=== PATIENT | female | born 1995 | race Caucasian/White ===

== ENCOUNTER 2019-10-05 20:32 | Emergency (ER) | payer MEDICAID, SELFPAY ==
[2019-10-05 20:40] VITALS: BP 174/115; PULSE 120; RESP 22; TEMP 36.3; O2SAT 97; BMI 54.9
--- NOTE | 2019-10-05 20:51 | ECG_ITS ---
Measurements Intervals [place] Rate: 108 P: 58 MD: 149 QRS: 59 QRSD: 106 T: 33 QT: 345 QTc: 463 SINUS TACHYCARDIA ABNORMAL RHYTHM ECG Compared to ECG 11/10/2017 12:53:17 Sinus rhythm no longer present Short MD interval no longer present Electronically Signed On 10-06-2019 0:20:49 [employer] by Mario Alberto Ontiveros M.D. [id number]
--- NOTE | 2019-10-05 20:51 | XR_ITS ---
WS: [id number] ONE VIEW CHEST HISTORY: 23 years old Female with cp AP upright chest comparison 11/10/2017 FINDINGS: No pneumothorax, pleural effusion, consolidation/atelectasis. Cardiomediastinal silhouette and pulmon froylan vascular markings are unremarkable. Osseous structures intact. XR/XR chest 1V portable [id number] IMPRESSION: No acute cardiopulmonary findings, and no significant change from 11/10/2017.
--- NOTE | 2019-10-05 20:52 | ED_ITS ---
Entered by Sandra Aguilar, acting as scribe for HPI - Chest Pain General: Chief Complaint: Chest Pain Stated Complaint: heart palps Time Seen by Provider: 10/05/19 20:42 Source: patient Mode of arrival: ambulatory Limitations: no limitations History of Present Illness: HPI narrative: 23 yo f came to the er for heart palpatations and dizziness. Onset was today. Pt states that she has some sob, palp, and dizziness. Pt states that she has had pe's in the past. MD complaint: chest pain and other (heart palpatations) Pertinent past history: other (pe) Onset (ago): day(s) (today) Timing of current episode: episodic Prior episodes: Yes Onset: during rest Pain radiation: none Severity: mild Quality: heaviness Relieving factors: nothing Exacerbating factors: nothing Associated symptoms: Reports dyspnea and palpitations; Deny abdominal pain, fever(s) or vomiting Treatment prior to arrival: none Risk Factors: Coronary artery disease risk factors: none Thoracic aortic dissection risk factors: none Pulmonary embolism risk factors: history of pulmonary embolism (x2) Related Data: On Oral Contraceptives: No Review of Systems General: Reports: other (negative unless marked ) Const: Denies: fever or chills Eyes: Denies: change in vision Card: Reports: palpitations and edema Resp: Reports: shortness of breath; Denies: non-productive cough or wheezing GI: Denies: abdominal pain or vomiting Neuro: Reports: headache and dizziness; Denies: vertigo or confusion PFSH ED PFSH: Statuses (acute, chronic, etc) shown below reflect problem list status as previously entered and may not be historically accurate Social History Smoking and tobacco status: never smoked Physical Exam Const: COMMON NORMALS: no apparent distress and oriented x3 EXAM LIMITATIONS: no altered mental status HENMT: COMMON NORMALS: normocephalic HEAD & SCALP: normocephalic FACE & SINUS: normal facial exam Chest: COMMONS NORMALS: inspection of chest normal Resp: COMMON NORMALS: normal respiratory effort, no retractions and clear to auscultation bilaterally EFFORT & INSPECTION: Yes able to speak in complete sentences AUSCULTATION: clear to auscultation bilaterally Cardio: COMMON NORMALS: regular rate RATE: regular rate and tachycardic PERIPHERAL PULSES: radial pulses present GI: INSPECTION: Yes normal to inspection RECTAL EXAM: no tenderness noted Neuro: COMMON NORMALS: oriented x3 Course Vital Signs: Vital signs: Vital Signs Temperature 97.4 F L 10/05/19 20:40 Pulse Rate 92 10/05/19 23:50 Respiratory Rate 18 10/05/19 23:50 Blood Pressure 142/91 10/05/19 23:50 Pulse Oximetry 97 10/05/19 23:50 MDM - Chest Pain MDM Narrative: Medical decision making narrative: 23-year-old obese female presents with tachycardia and hypertension. She is having palpitations. Not necessarily chest discomfort. Her troponin was negative. Her EKG showed sinus tachycardia only. Her d-dimer was slightly elevated. CTA was ordered given her prior history of PEs, and is negative for PE or infiltrate. Metoprolol lowered her blood pressure and for heart rate in the ER, and she improved. She had a mild headache that improved as well. She will be allowed home on labetalol. TSH was mildly elevated. She will follow-up with her PCP. Lab Data: Labs: Lab Results 10/05/19 10/05/19 10/05/19 Range/Units 21:32 21:32 21:32 WBC (4.0-10.0) 10^3/ uL RBC (4.1-5.3) 10^6/u L Hgb (11.5-15.3) g/dL Hct (37.0-47.0) % MCV (81-99) fL MCH (28.0-34.0) pg MCHC (30.0-36.0) g/dL RDW (12.1-15.1) % Plt Count (130-400) 10^3/c mm MPV (7.4-10.4) fL Neut % (Auto) % Lymph % (Auto) % [place] % (Auto) % Eos % (Auto) % Baso % (Auto) % Neut # (Auto) (1.8-7.7) 10^3/u L Lymph # (Auto) (0.8-4.8) 10^3/u L [place] # (Auto) (0.2-0.9) 10^3/u L Eos # (Auto) (0.0-0.8) 10^3/u L Baso # (Auto) (0.0-0.1) 10^3/u L Nucleated RBC % (a uto) % Nucleated RBCs # /100WBC D-Dimer 0.75 H (0-0.59) ug/mIFE U Sodium 139 (136-145) mmol/L Potassium 3.5 (3.5-5.1) mmol/L Chloride 104 (98-107) mmol/L Carbon Dioxide 23 (22-29) mmol/L Anion Gap 15.5 (5-19) BUN 10 (6-20) mg/dL Creatinine 0.7 (0.5-0.9) mg/dL GFR Calculation 102.0 (90-130) mL/min Glucose 98 (65-115) mg/dL Calcium 9.6 (8.5-10.5) mg/dL Total Bilirubin 0.5 (0.15-1.2) mg/dL AST 18 (0-32) U/L ALT 21 (0-33) U/L Alkaline Phosphata se 88 (35-105) IU/L Creatine Kinase 58 (26-192) U/L Troponin T Baselin e 6 (0-10) ng/mL Troponin T 120 Min [place] (0-10) ng/mL Delta Troponin T (0-10) ABS# Total Protein 7.8 (6.6-8.7) g/dL Albumin 4.4 (3.5-5.2) g/dL Globulin 3.4 (1.3-4.6) g/dL TSH 6.03 H (0.27-4.20) uIU/ mL HCG, Qual (Negative) Urine Color (Yellow) Urine Appearance (CLEAR) Urine pH (5-7) Ur Specific Gravit y (1.005-1.030) Urine Protein (Negative) Urine Glucose (UA) (Normal) Urine Ketones (Negative) Urine Occult Blood (Negative) Urine Nitrate (Negative) Urine Bilirubin (NEGATIVE) Urine Urobilinogen (Negative) mg/dL Ur Leukocyte Mary ase (Negative) Urine RBC (0-2) /hpf Urine WBC (0-5) /hpf Ur Squamous Epith Cells (0-5) Urine Bacteria (NONE) Urine Mucus Urine Opiates Scre en (Negative) ng/mL Ur Barbiturates Sc reen (Negative) ng/mL Ur Phencyclidine S crn (Negative) ng/mL Ur Amphetamines Sc reen (Negative) ng/mL U Benzodiazepines Scrn (Negative) ng/mL Urine Cocaine Scre en (Negative) ng/mL U Marijuana (THC) Screen (Negative) ng/mL 10/05/19 10/05/19 10/05/19 Range/Units 21:32 22:15 22:30 WBC 10.4 H (4.0-10.0) 10^3/ uL RBC 4.45 (4.1-5.3) 10^6/u L Hgb 11.7 (11.5-15.3) g/dL Hct 37.3 (37.0-47.0) % MCV 83.8 (81-99) fL MCH 26.3 L (28.0-34.0) pg MCHC 31.4 (30.0-36.0) g/dL RDW 12.7 (12.1-15.1) % Plt Count 260 (130-400) 10^3/c mm MPV 10.1 (7.4-10.4) fL Neut % (Auto) 63.9 % Lymph % (Auto) 29.4 % [place] % (Auto) 5.2 % Eos % (Auto) 0.9 % Baso % (Auto) 0.3 % Neut # (Auto) 6.6 (1.8-7.7) 10^3/u L Lymph # (Auto) 3.1 (0.8-4.8) 10^3/u L [place] # (Auto) 0.5 (0.2-0.9) 10^3/u L Eos # (Auto) 0.1 (0.0-0.8) 10^3/u L Baso # (Auto) 0.0 (0.0-0.1) 10^3/u L Nucleated RBC % (a uto) 0 % Nucleated RBCs # 0.0 /100WBC D-Dimer (0-0.59) ug/mIFE U Sodium (136-145) mmol/L Potassium (3.5-5.1) mmol/L Chloride (98-107) mmol/L Carbon Dioxide (22-29) mmol/L Anion Gap (5-19) BUN (6-20) mg/dL Creatinine (0.5-0.9) mg/dL GFR Calculation (90-130) mL/min Glucose (65-115) mg/dL Calcium (8.5-10.5) mg/dL Total Bilirubin (0.15-1.2) mg/dL AST (0-32) U/L ALT (0-33) U/L Alkaline Phosphata se (35-105) IU/L Creatine Kinase (26-192) U/L Troponin T Baselin e (0-10) ng/mL Troponin T 120 Min [place] (0-10) ng/mL Delta Troponin T (0-10) ABS# Total Protein (6.6-8.7) g/dL Albumin (3.5-5.2) g/dL Globulin (1.3-4.6) g/dL TSH (0.27-4.20) uIU/ mL HCG, Qual Negative (Negative) Urine Color (Yellow) Urine Appearance (CLEAR) Urine pH (5-7) Ur Specific Gravit y (1.005-1.030) Urine Protein (Negative) Urine Glucose (UA) (Normal) Urine Ketones (Negative) Urine Occult Blood (Negative) Urine Nitrate (Negative) Urine Bilirubin (NEGATIVE) Urine Urobilinogen (Negative) mg/dL Ur Leukocyte Mary ase (Negative) Urine RBC (0-2) /hpf Urine WBC (0-5) /hpf Ur Squamous Epith Cells (0-5) Urine Bacteria (NONE) Urine Mucus Urine Opiates Scre en Negative (Negative) ng/mL Ur Barbiturates Sc reen Negative (Negative) ng/mL Ur Phencyclidine S crn Negative (Negative) ng/mL Ur Amphetamines Sc reen Negative (Negative) ng/mL U Benzodiazepines Scrn Negative (Negative) ng/mL Urine Cocaine Scre en Negative (Negative) ng/mL U Marijuana (THC) Screen Negative (Negative) ng/mL 10/05/19 10/05/19 Range/Units 22:30 23:17 WBC (4.0-10.0) 10^3/ uL RBC (4.1-5.3) 10^6/u L Hgb (11.5-15.3) g/dL Hct (37.0-47.0) % MCV (81-99) fL MCH (28.0-34.0) pg MCHC (30.0-36.0) g/dL RDW (12.1-15.1) % Plt Count (130-400) 10^3/c mm MPV (7.4-10.4) fL Neut % (Auto) % Lymph % (Auto) % [place] % (Auto) % Eos % (Auto) % Baso % (Auto) % Neut # (Auto) (1.8-7.7) 10^3/u L Lymph # (Auto) (0.8-4.8) 10^3/u L [place] # (Auto) (0.2-0.9) 10^3/u L Eos # (Auto) (0.0-0.8) 10^3/u L Baso # (Auto) (0.0-0.1) 10^3/u L Nucleated RBC % (a uto) % Nucleated RBCs # /100WBC D-Dimer (0-0.59) ug/mIFE U Sodium (136-145) mmol/L Potassium (3.5-5.1) mmol/L Chloride (98-107) mmol/L Carbon Dioxide (22-29) mmol/L Anion Gap (5-19) BUN (6-20) mg/dL Creatinine (0.5-0.9) mg/dL GFR Calculation (90-130) mL/min Glucose (65-115) mg/dL Calcium (8.5-10.5) mg/dL Total Bilirubin (0.15-1.2) mg/dL AST (0-32) U/L ALT (0-33) U/L Alkaline Phosphata se (35-105) IU/L Creatine Kinase (26-192) U/L Troponin T Baselin e (0-10) ng/mL Troponin T 120 Min [place] 6.00 (0-10) ng/mL Delta Troponin T 0 (0-10) ABS# Total Protein (6.6-8.7) g/dL Albumin (3.5-5.2) g/dL Globulin (1.3-4.6) g/dL TSH (0.27-4.20) uIU/ mL HCG, Qual (Negative) Urine Color Yellow (Yellow) Urine Appearance Sl cloudy A (CLEAR) Urine pH 5 (5-7) Ur Specific Gravit y 1.030 (1.005-1.030) Urine Protein Neg (Negative) Urine Glucose (UA) Norm (Normal) Urine Ketones 1+ H (Negative) Urine Occult Blood 2+ H (Negative) Urine Nitrate Negative (Negative) Urine Bilirubin Neg (NEGATIVE) Urine Urobilinogen Norm (Negative) mg/dL Ur Leukocyte Mary ase Negative (Negative) Urine RBC 0-4 H (0-2) /hpf Urine WBC 0-4 H (0-5) /hpf Ur Squamous Epith Cells 0-4 H (0-5) Urine Bacteria 1+ H (NONE) Urine Mucus 2+ Urine Opiates Scre en (Negative) ng/mL Ur Barbiturates Sc reen (Negative) ng/mL Ur Phencyclidine S crn (Negative) ng/mL Ur Amphetamines Sc reen (Negative) ng/mL U Benzodiazepines Scrn (Negative) ng/mL Urine Cocaine Scre en (Negative) ng/mL U Marijuana (THC) Screen (Negative) ng/mL Discharge Plan Discharge Patient Disposition: Home, Self-Care Clinical Impression: Heart palpitations Hypertension Qualifiers: Hypertension type: unspecified Qualified Code(s): I10 - Essential (primary) hypertension Condition: Stable Prescriptions: New labetalol 100 mg tablet 100 mg PO BID Qty: 60 RF: 0 Discharge Orders: Discharge Order (Routine); Ordered 10/05/19 Ordered By: Lukas Boland Referrals: Dani Monge MD [Primary Care Provider] - 4-7 days Discharge Diet: Advance as tolerated Discharge Activity: Increase activity as tolerated Patient Instructions: Palpitations (ED), Hypertension (ED) Activity Restrictions/Additional Instructions: Return for worsening chest discomfort or palpitations despite treatment, fever, vomiting, shortness of breath, other concerning symptoms. Check your blood pressure twice daily, and report numbers to your physician Stand Alone Forms: Work/School Release Discharge Date/Time: 10/05/19 23:56 Coding Level of Care Code ED Service Captain for Chg Fwd The documentation recorded by the Jeff ramirez Stephanie Lyn, accurately reflects the service I personally performed and the decisions made by Krystian greenfield Jeremy John, DO Oct 05, 2019 20:32
[2019-10-05] MEDS: sodium chloride 0.9% 1,000 ML 999 ML IV (21:07)
[2019-10-05] MEDS: ketorolac 30 mg/mL INJ IVP (21:26)
[2019-10-05] MEDS: metoprolol tartrate 1 mg/1 mL SDV 5 mL 5 MG IV (21:27)
[2019-10-05 21:49] LABS: D Dimer 0.75 ug/mIFEU (0-0.59)
[2019-10-05 21:50] LABS: HCG, Serum Qual Negative (Negative)
[2019-10-05 21:55] LABS: Troponin(5th) Baseline 6 ng/mL (0-10)
--- NOTE | 2019-10-05 21:58 | CTR_ITS ---
PROCEDURE INFORMATION: Exam: CT Angiography Chest With Contrast Exam date and time: 10/05/2019 10:05 PM Age: 23 years old Clinical indication: Shortness of breath; Chest pain; Type not specified; Patient HX: Cp/palpatations and SOB HX of pe elev hr-bp-rr TECHNIQUE: Imaging protocol: Computed tomographic angiography of the chest with intravenous contrast. 3D rendering: MIP and/or 3D reconstructed images were created by the technologist. Total DLP: 567.59 mGy-cm Radiation optimization: All CT scans at this facility use at least one of these dose optimization techniques: automated exposure control; mA and/or kV adjustment per patient size (includes targeted exams where dose is matched to clinical indication); or iterative reconstruction. Contrast material: OMNI 350; Contrast volume: 95 ml; Contrast route: 20G; COMPARISON: CTA Chest-Pulmonary Emb [id number] 06/19/2018 3:28 PM FINDINGS: The visualized bony structures are unremarkable. The lungs are clear of infiltrate. There is no pleural effusion. There is no pneumothorax. There are no suspicious pulmonary nodules. The central airways are normal in caliber. The thyroid gland is unremarkable. There is no axillary adenopathy. There is no mediastinal adenopathy. There is no hilar adenopathy. There is fair opacification of pulmonary arteries. There is no evidence for pulmonary embolism. The aorta is normal in caliber with no evidence for aneurysm or dissection. The heart is normal in size. There is no evidence for right heart failure. The upper abdominal structures are unremarkable. CT/CT angio chest PE protcl [id number] IMPRESSION: 1. No evidence for pulmonary embolism. 2. No infiltrates. Radiation Dose CTDIVOL = (mGy): DLP = 567.59 (mGy-cm)
[2019-10-05 22:00] LABS: Alanine Aminotransferase 21 U/L (0-33); Albumin Level 4.4 g/dL (3.5-5.2); Alkaline Phosphatase 88 IU/L (35-105); Anion Gap 15.5 (5-19); Aspartate Amino Transferase 18 U/L (0-32); Blood Urea Nitrogen 10 mg/dL (6-20); Calcium 9.6 mg/dL (8.5-10.5); Carbon Dioxide 23 mmol/L (22-29); Chloride 104 mmol/L (98-107); Creatine Phosphokinase 58 U/L (26-192); Globulin 3.4 g/dL (1.3-4.6); Glucose 98 mg/dL (65-115); Potassium 3.5 mmol/L (3.5-5.1); Sodium 139 mmol/L (136-145); Thyroid Stimulating Hormone 6.03 uIU/mL (0.27-4.20); Total Bilirubin 0.5 mg/dL (0.15-1.2); Total Protein 7.8 g/dL (6.6-8.7)
[2019-10-05] MEDS: iohexol 350 mg/mL 100 mL Btl IV (22:29)
[2019-10-05 22:33] LABS: Basophils % 0.3 %; Eosinophils # 0.1 10^3/uL (0.0-0.8); Eosinophils % 0.9 %; Hematocrit 37.3 % (37.0-47.0); Hemoglobin 11.7 g/dL (11.5-15.3); Lymphocytes # 3.1 10^3/uL (0.8-4.8); Lymphocytes % 29.4 %; Mean Corpuscular HGB Conc 31.4 g/dL (30.0-36.0); Mean Corpuscular Hemoglobin 26.3 pg (28.0-34.0); Mean Corpuscular Volume 83.8 fL (81-99); Mean Platelet Volume 10.1 fL (7.4-10.4); Monocytes # 0.5 10^3/uL (0.2-0.9); Monocytes % 5.2 %; Neutrophils # 6.6 10^3/uL (1.8-7.7); Neutrophils % 63.9 %; Nucleated Red Blood Cells % 0 %; Platelet Count 260 10^3/cmm (130-400); Red Blood Count 4.45 10^6/uL (4.1-5.3); Red Cell Distribution Width 12.7 % (12.1-15.1); White Blood Count 10.4 10^3/uL (4.0-10.0)
--- NOTE | 2019-10-05 22:51 | ECG_ITS ---
Measurements Intervals [place] Rate: 85 P: 56 WI: 139 QRS: 61 QRSD: 99 T: 42 QT: 362 QTc: 431 SINUS RHYTHM Compared to ECG 11/10/2017 12:53:17 Short [place] interval no longer present Electronically Signed On 10-06-2019 0:22:57 [employer] by Mario Alberto Ontiveros M.D. [email or web address]
[2019-10-05 22:54] LABS: Add Urine Microscopic? YES; Bilirubin Urine Neg (NEGATIVE); Blood Urine 2+ (Negative); Glucose Urine UA Norm (Normal); Ketones Urine 1+ (Negative); Leukocyte Esterase Urine Negative (Negative); Nitrate Urine Negative (Negative); Protein Urine Neg (Negative); Urine Color Yellow (Yellow); Urobilinogen Urine Norm (Negative); pH Urine 5 (5-7)
[2019-10-05 22:55] LABS: Add Urine Culture? No; Amphetamines Screen Urine Negative (Negative); Bacteria Urine 1+; Barbiturates Screen Urine Negative (Negative); Benzodiazepines Screen Urine Negative (Negative); Cocaine Screen Urine Negative (Negative); Mucus Urine 2+; Opiate Screen Urine Negative (Negative); PCP Screen Urine Negative (Negative); RBC Urine 0-4 /hpf (0-2); Squamous Epithelial Cell Urine 0-4 (0-5); THC Screen Urine Negative (Negative); WBC Urine 0-4 /hpf (0-5)
[2019-10-05 23:19] VITALS: BP 172/99; PULSE 93; RESP 18; O2SAT 99
[2019-10-05] MEDS: acetaminophen 500 mg Tablet 1000 MG PO (23:44)
[2019-10-05] MEDS: metoprolol tartrate 25 mg Tablet PO (23:47)
[2019-10-05 23:50] VITALS: BP 142/91; PULSE 92; RESP 18; O2SAT 97
[2019-10-05 23:50] LABS: Troponin 5 2HR Delta 0 ABS# (0-10)
--- NOTE | 2019-10-05 23:56 | PC.NURSE ---
20 G Left AC removed intact, dressed, no bleeding, patient tolerated well
== END 2019-10-05 23:56 | disposition home or self-care (01) ==
PROVIDERS: Emergency Provider Emergency Medicine; Family Provider Family Medicine; PCP Family Medicine
DX: R00.2 Palpitations (principal); I10 Essential (primary) hypertension; E66.9 Obesity, unspecified; Z86.711 Personal history of pulmonary embolism; Z68.43 Body mass index [BMI] 50.0-59.9, adult
CPT/HCPCS: 71045; 71275; 80053; 80307; 81001; 82550; 84443; 84484; 84703; 85025; 85378; 93005; 96361; 96374; 96375; 99283; 99284; J1885; J3490; J7030; Q9967

== ENCOUNTER → 2020-08-02 15:18 | Outpatient (BNVA) | payer OTHER, SELFPAY | PROVIDERS: Family Provider Family Medicine; PCP Family Medicine; Visit Provider Emergency Medicine | DX: Z20.828 Contact with and (suspected) exposure to other viral communicable diseases (principal) | CPT/HCPCS: 87635 ==

== ENCOUNTER → 2020-11-06 09:32 | Outpatient (BNVA) | payer OTHER, SELFPAY | PROVIDERS: Family Provider Family Medicine; PCP Family Medicine; Visit Provider Family Medicine | DX: E03.1 Congenital hypothyroidism without goiter (principal); E66.9 Obesity, unspecified | CPT/HCPCS: 84443 ==

== ENCOUNTER 2020-12-25 08:49 | Outpatient (CLI) | payer OTHER, BC, SELFPAY ==
[2020-12-25 09:36] LABS: Basophils % 0.3 %; Eosinophils # 0.1 10^3/uL (0.0-0.8); Eosinophils % 0.8 %; Hematocrit 42.2 % (37.0-47.0); Hemoglobin 13.8 g/dL (11.5-15.3); Lymphocytes # 2.8 10^3/uL (0.8-4.8); Lymphocytes % 31.6 %; Mean Corpuscular HGB Conc 32.7 g/dL (30.0-36.0); Mean Corpuscular Hemoglobin 27.4 pg (28.0-34.0); Mean Corpuscular Volume 83.7 fL (81-99); Mean Platelet Volume 10.6 fL (7.4-10.4); Monocytes # 0.5 10^3/uL (0.2-0.9); Monocytes % 5.4 %; Neutrophils # 5.39 10^3/uL (1.8-7.7); Neutrophils % 61.6 %; Nucleated Red Blood Cells % 0 %; Platelet Count 260 10^3/cmm (130-400); Red Blood Count 5.04 10^6/uL (4.1-5.3); Red Cell Distribution Width 12.7 % (12.1-15.1); White Blood Count 8.8 10^3/uL (4.0-10.0)
[2020-12-25 09:49] LABS: Alanine Aminotransferase 18 U/L (0-33); Albumin Level 4.2 g/dL (3.5-5.2); Alkaline Phosphatase 67 IU/L (35-105); Anion Gap 13.8 (5-19); Aspartate Amino Transferase 17 U/L (0-32); Blood Urea Nitrogen 11 mg/dL (6-20); Calcium 8.9 mg/dL (8.5-10.5); Carbon Dioxide 24 mmol/L (22-29); Chloride 103 mmol/L (98-107); Globulin 3.3 g/dL (1.3-4.6); Glomerular Filtration Rate 119.9 mL/min (90-130); Glucose 89 mg/dL (65-115); Osmolality Calculated 283 mOsm/kg (285-295); Potassium 3.8 mmol/L (3.5-5.1); Sodium 137 mmol/L (136-145); Thyroid Stimulating Hormone 5.62 uIU/mL (0.27-4.20); Total Bilirubin 0.6 mg/dL (0.15-1.2); Total Protein 7.5 g/dL (6.6-8.7)
== END 2020-12-25 08:50 | disposition home or self-care (01) ==
PROVIDERS: Family Provider Family Medicine; PCP Family Medicine; Visit Provider Family Medicine
DX: Z51.81 Encounter for therapeutic drug level monitoring (principal); I10 Essential (primary) hypertension; E03.9 Hypothyroidism, unspecified; E04.1 Nontoxic single thyroid nodule
CPT/HCPCS: 36415; 80053; 84439; 84443; 85025

== ENCOUNTER 2021-02-03 08:15 | Outpatient (CLI) | payer OTHER, BC, MEDICAID, SELFPAY ==
--- NOTE | 2021-02-03 08:25 | US_ITS ---
WS: [id number] THYROID ULTRASOUND HISTORY: THYROID NODULE COMPARISON: 10/01/2015 and 12/22/2017 Right lobe: 2.7 cm x 3.0 cm x 7.5 cm (w x ap x l). Volume: 30.9 cm3. Enlarged thyroid with diffuse hypoechoic and heterogeneous echo pattern. No increased vascularity. Th ere is no dominant or discrete nodule identified. Left lobe: 2.1 cm x 2.4 cm x 7.7 cm (w x ap x l). Volume: 20.2 cm3. Enlarged thyroid with diffuse hypoechoic and heterogeneous echo pattern. No increased vascularity. Isthmus: 1.5 cm. Enlarged heterogeneous gland. US/US thyroid [id number] IMPRESSION: 1. Enlarged heterogeneous gland. Most consistent with Dakota's disease. No discrete nodule. No increased vascularity. 2. Similar to the prior study.
== END 2021-02-03 08:16 | disposition home or self-care (01) ==
LOC: RAD 08:20
PROVIDERS: PCP Family Medicine; Visit Provider Family Medicine
DX: R22.42 Localized swelling, mass and lump, left lower limb (principal); E04.1 Nontoxic single thyroid nodule
CPT/HCPCS: 76536

== ENCOUNTER 2021-02-15 17:11 | Outpatient (CLI) | payer OTHER, BC, MEDICAID, SELFPAY ==
[2021-02-15 18:33] LABS: Follicle Stimulating Hormone 4.7 mIU/mL; Luteinizing Hormone 5.9 mIU/mL (0.5-41.7)
[2021-02-15 21:05] LABS: Estmated Average Glucose 94; Hemoglobin A1C 4.9 % (4.0-6.0)
[2021-02-17 16:18] LABS: Dehydroepiandrosterone Sulfate 343 mcg/dL (18-391)
[2021-02-19 04:33] LABS: Antithrombin III Activity 95 % normal (80-135)
[2021-02-19 06:47] LABS: Beta 2 Glycoprotein IGA <2.0 U/mL (<20.0); Beta 2 Glycoprotein IGG <2.0 U/mL (<20.0); Beta 2 Glycoprotein IGM 2.5 U/mL (<20.0)
[2021-02-20 19:02] LABS: CARDIOLIPIN AB (IGA) <2.0 APL-U/mL; CARDIOLIPIN AB (IGG) <2.0 GPL-U/mL; CARDIOLIPIN AB (IGM) 2.5 MPL-U/mL
[2021-02-20 21:48] LABS: LA-Interp Not Indicated; PTT-LA 33 sec (<=40); Prothrombin Time 29 sec (<=45)
== END 2021-02-15 17:12 | disposition home or self-care (01) ==
PROVIDERS: PCP Family Medicine; Visit Provider Obstetrics & Gynecology
DX: Z86.718 Personal history of other venous thrombosis and embolism (principal); E34.9 Endocrine disorder, unspecified; O24.919 Unspecified diabetes mellitus in pregnancy, unspecified trimester
CPT/HCPCS: 36415; 81241; 82627; 83001; 83002; 83036; 83525; 85300; 85613; 85730; 86146; 86147

== ENCOUNTER 2021-05-19 11:22 | Outpatient (CLI) | payer OTHER, BC, MEDICAID, SELFPAY ==
--- NOTE | 2021-05-19 11:00 | US_ITS ---
WS: [id number] ULTRASOUND BREAST LEFT TECHNIQUE: Ultrasound left breast focused area of concern. CLINICAL INFORMATION: N64.4 - Mastodynia COMPARISON: None. FINDINGS: Ultrasound left breast at the 9 to 11:00 position. Normal underlying breast tissue. No evidence of cy stic or solid mass. No suspicious findings. US/US breast LT limited* [id number] IMPRESSION: No suspicious findings BI-RADS 2 BENIGN FOLLOW UP: Recommend annual screening mammography age 40
== END 2021-05-19 11:23 | disposition home or self-care (01) ==
LOC: RAD 11:25
PROVIDERS: PCP Family Medicine; Visit Provider Obstetrics & Gynecology
DX: N64.4 Mastodynia (principal)
CPT/HCPCS: 76642

== ENCOUNTER → 2021-08-25 10:11 | Outpatient (BNVA) | payer OTHER, BC, SELFPAY | PROVIDERS: PCP Family Medicine; Referring Provider Internal Medicine; Visit Provider Podiatrist Foot & Ankle Surgery | DX: M79.672 Pain in left foot (principal) | CPT/HCPCS: 73630 ==

== ENCOUNTER → 2021-11-25 14:40 | Outpatient (BNVA) | payer OTHER, BC, MEDICAID, SELFPAY | PROVIDERS: PCP Family Medicine; Visit Provider Family Medicine | DX: E03.1 Congenital hypothyroidism without goiter (principal); I10 Essential (primary) hypertension | CPT/HCPCS: 80053; 80061; 84443; 85025 ==

== ENCOUNTER 2021-12-06 10:25 | Outpatient (CLI) | payer OTHER, BC, MEDICAID, SELFPAY ==
--- NOTE | 2021-12-06 10:36 | US_ITS ---
WS: [id number] ULTRASOUND LEFT BREAST HISTORY: N63.20 - Unspecified lump in the left breast, unspecified... COMPARISON: 05/19/2021 TECHNIQUE: 2-D and Doppler. Ultrasound is directed to the 9:00 axis as indicated by the patient. This has a similar area as the p rior study from 05/17/2021. There is dense fibroglandular tissue. No mass or distortion identified. No skin thickening. US/US breast LT limited* [id number] IMPRESSION: BI-RADS: 1-Negative FOLLOW-UP: Age 38
== END 2021-12-06 10:26 | disposition home or self-care (01) ==
LOC: RAD 10:26
PROVIDERS: PCP Family Medicine; Visit Provider Family Medicine
DX: N63.20 Unspecified lump in the left breast, unspecified quadrant (principal)
CPT/HCPCS: 76642

== ENCOUNTER 2021-12-31 14:42 | Outpatient (CLI) | payer OTHER, BC, MEDICAID, SELFPAY ==
[2021-12-31 15:08] LABS: Basophils % 0.3 %; Eosinophils # 0.1 10^3/uL (0.0-0.8); Hematocrit 44.6 % (37.0-47.0); Hemoglobin 14.4 g/dL (11.5-15.3); Lymphocytes # 3.6 10^3/uL (0.8-4.8); Lymphocytes % 30.9 %; Mean Corpuscular HGB Conc 32.3 g/dL (30.0-36.0); Mean Corpuscular Hemoglobin 27.5 pg (28.0-34.0); Mean Corpuscular Volume 85.1 fl (81-99); Mean Platelet Volume 10.4 fL (7.4-10.4); Monocytes # 0.7 10^3/uL (0.2-0.9); Monocytes % 6.1 %; Neutrophils # 7.04 10^3/uL (1.8-7.7); Neutrophils % 61.3 %; Nucleated Red Blood Cells % 0 %; Platelet Count 327 10^3/cmm (130-400); Red Blood Count 5.24 10^6/uL (4.1-5.3); Red Cell Distribution Width 12.4 % (12.1-15.1); White Blood Count 11.5 10^3/uL (4.0-10.0)
[2021-12-31 15:43] LABS: Albumin Level 4.2 g/dL (3.5-5.2); Alkaline Phosphatase 86 IU/L (35-105); Anion Gap 14.7 (5-19); Aspartate Amino Transferase 16 U/L (0-32); Blood Urea Nitrogen 14 mg/dL (6-20); Calcium 9.7 mg/dL (8.5-10.5); Carbon Dioxide 25 mmol/L (22-29); Chloride 102 mmol/L (98-107); Globulin 3.7 g/dL (1.3-4.6); Glomerular Filtration Rate 99.6 mL/min (90-130); Glucose 102 mg/dL (65-115); Magnesium 2.1 mg/dL (1.7-2.3); Osmolality Calculated 287 mOsm/kg (285-295); Potassium 3.7 mmol/L (3.5-5.1); Sodium 138 mmol/L (136-145); Thyroid Stimulating Hormone 1.78 uIU/mL (0.27-4.20); Total Bilirubin 0.5 mg/dL (0.15-1.2); Total Protein 7.9 g/dL (6.6-8.7)
[2021-12-31 16:03] LABS: Alanine Aminotransferase 17 U/L (0-33)
[2021-12-31 21:41] LABS: Free T4 Free Thyroxine 1.89 ng/dL (0.82-1.77)
== END 2021-12-31 14:43 | disposition home or self-care (01) ==
PROVIDERS: PCP Family Medicine; Visit Provider Family Medicine
DX: R00.2 Palpitations (principal); E03.9 Hypothyroidism, unspecified; I10 Essential (primary) hypertension; Z79.899 Other long term (current) drug therapy
CPT/HCPCS: 80053; 83735; 84439; 84443; 85025; 85378

== ENCOUNTER → 2022-04-05 12:12 | Outpatient (BNVA) | payer OTHER, BC, MEDICAID, SELFPAY | PROVIDERS: PCP Family Medicine; Visit Provider Family Medicine | DX: Z51.81 Encounter for therapeutic drug level monitoring (principal); I10 Essential (primary) hypertension; N92.1 Excessive and frequent menstruation with irregular cycle; F32.9 Major depressive disorder, single episode, unspecified; Z86.711 Personal history of pulmonary embolism | CPT/HCPCS: 85025 ==

== ENCOUNTER 2022-06-23 09:22 | Outpatient (CLI) | payer OTHER, BC, MEDICAID, SELFPAY ==
--- NOTE | 2022-06-23 | US_ITS ---
DIAGNOSTIC LEFT DIGITAL TOMOSYNTHESIS MAMMOGRAPHY WITH CAD. LEFT breast ultrasound, limited HISTORY: BLOODY DISCHARGE, 4CM MASS, PAIN COMPARISON: 12/06/2021 and 05/19/2021 breast ultrasounds. Technique: CC, MLO and ML views. Spot compression LEFT CC. Breast composition: There are scattered areas of fibroglandular density. No masses identified in the anterior breast as directed by the patient. There is very minimal scattered fibroglandular tissue. A few calcifications. Benign lymph node in the posterior breast. No nipple retraction. LEFT breast ultrasound, limited. Ultrasound is directed around the nipple and at 9:00 as directed by the patient. Normal fibroglandular soft tissue densities. Normal echogenicity with no shadowing or mass. No dilated ducts. IMPRESSION: BI-RADS: 2-Benign FOLLOW UP: See Report No additional imaging necessary. If bloody nipple discharge persists follow-up with breast surgeon may be necessary MTDD
--- NOTE | 2022-06-23 09:34 | MM_ITS ---
WS: [id number] DIAGNOSTIC LEFT DIGITAL TOMOSYNTHESIS MAMMOGRAPHY WITH CAD. LEFT breast ultrasound, limited HISTORY: BLOODY DISCHARGE, 4CM MASS, PAIN COMPARISON: 12/06/2021 and 05/19/2021 breast ultrasounds. Technique: CC, MLO and ML views. Spot compression LEFT CC. Breast composition: There are scattered areas of fibroglandular density. No masses identified in the anterior breast as directed by the patient. There is very minimal scattered fibroglandular tissue. A few calcifications. Benign lymph node in the posterior breast. No nipple retraction. LEFT breast ultrasound, limited. Ultrasound is directed around the nipple and at 9:00 as directed by the patient. Normal fibroglandula r soft tissue densities. Normal echogenicity with no shadowing or mass. No dilated ducts. MM/[place] [id number] IMPRESSION: BI-RADS: 2-Benign FOLLOW UP: See Report No additional imaging necessary. If bloody nipple discharge persists follow-up with breast surgeon may be necessary.
== END 2022-06-23 09:23 | disposition home or self-care (01) ==
LOC: RAD 09:23
PROVIDERS: PCP Family Medicine; Visit Provider Family Medicine
DX: N64.52 Nipple discharge (principal); N63.25 Unspecified lump in the left breast, overlapping quadrants
CPT/HCPCS: 76642; 77061

== ENCOUNTER 2022-09-22 14:21 | Outpatient (CLI) | payer OTHER, BC, MEDICAID, SELFPAY ==
[2022-09-22 16:08] LABS: Free T4 Free Thyroxine 1.02 ng/dL (0.82-1.77); Testosterone Total 35.5 ng/dL (8.4-48.1)
[2022-09-23 07:50] LABS: T3 Total 121 ng/dL (76-181)
[2022-09-23 15:09] LABS: Thyroglobulin AB 1 IU/mL (< or = 1); Thyroid Peroxidase Antobodies 369 IU/mL (<9)
[2022-09-24 04:04] LABS: Dehydroepiandrosterone Sulfate 239 mcg/dL (14-349)
== END 2022-09-22 14:22 | disposition home or self-care (01) ==
LOC: LAB 14:26
PROVIDERS: PCP Family Medicine; Visit Provider Internal Medicine
DX: E03.9 Hypothyroidism, unspecified (principal); R63.5 Abnormal weight gain; L68.0 Hirsutism
CPT/HCPCS: 36415; 82627; 84403; 84439; 84480; 86376; 86800

== ENCOUNTER 2022-10-18 17:13 | Outpatient (CLI) | payer OTHER, BC, MEDICAID, SELFPAY ==
[2022-10-18 18:13] LABS: D Dimer 1.11 ug/mIFEU (0-0.59)
== END 2022-10-18 17:14 | disposition home or self-care (01) ==
LOC: LAB 17:16
PROVIDERS: PCP Family Medicine; Visit Provider Family Medicine
DX: R07.9 Chest pain, unspecified (principal)
CPT/HCPCS: 36415; 85378

== ENCOUNTER 2022-10-19 10:41 | Outpatient (CLI) | payer OTHER, BC, MEDICAID, SELFPAY ==
--- NOTE | 2022-10-19 11:00 | CT_ITS ---
WS: [id number] CT CHEST ANGIOGRAPHY WITH REFORMATS HISTORY: Pleuritic chest pain, h/o PE TECHNIQUE: Contiguous axial images are obtained through the chest during arterial injection of intrav enous contrast. Images are reconstructed to evaluate the pulmonary arteries. MIP imaging also reviewe d. All CT scans at [facility] use at least one of these dose optimization techniques: automat ed exposure control; mA and/or kV adjustment per patient size (includes targeted exams where dose is matched to clinical indication); or iterative reconstruction. CONTRAST: Omnipaque 350; 95 mL IV. DLP: 556.00 mGy-cm. COMPARISON: 10/05/2019 Suboptimal evaluation of the pulmonary arteries due to body habitus. Centrally there is no pulmonary embolism or significant filling defect identified. Through the lobar branches the opacification appea rs normal. Into the segmental and subsegmental branches the opacification becomes more variable. Ther e is no obvious occlusion. Normal size aorta. No pericardial or pleural effusions. No RIGHT heart str ain. There are a few areas of very subtle groundglass attenuation scattered throughout both lungs but grea test on the RIGHT. No dense consolidation or opacification. Thyroid appears enlarged. No mediastinal or hilar adenopathy. Hepatic steatosis. CT/CT angio chest PE protcl [id number] IMPRESSION: 1. Suboptimal opacification of the pulmonary arteries due to body habitus. 2. No central or lobar pulmonary emboli. 3. Mild bilateral pneumonitis, greater on the RIGHT. 4. Thyromegaly. Previously described on 02/03/2021.
[2022-10-19] MEDS: iohexol 350 mg/mL 500 mL Btl (per mL) IV (11:01)
--- NOTE | 2022-10-19 14:00 | USCV_ITS ---
Opal Simpson Age: 26 Gender: F : 1995 Exam Date: 10/19/2022 10:52 Ordering Phys: Dani Monge MD Technologist: CT Exam Location: [facility] [place] Indication: swelling le's PROCEDURES: The venous duplex Doppler examination of both lower extremities was performed in the standard fashion. In addition, the posterior tibial and peroneal trunk were evaluated. Bilaterally, the common femoral, superficial femoral, profunda femoral, popliteal, posterior tibial, greater saphenous veins, and the peroneal trunk were identified and interrogated in the standard fashion. These veins were found to be easily compressible with spontaneous blood flow. No evidence of insufficiency or thrombus noted. FINDINGS: Large pt, hx of dvt and venous stents. the left cfv stent is clearly seen without complication, compression in the left cfv is not attainable. Normal venous doppler exam CONCLUSIONS Left CFV stent appears patent No evidence of right lower extremity DVT. No evidence of left lower extremity DVT. Zackery Mccormack MD (Electronically Signed) Final Date: 19 October 2022 15:41 S
== END 2022-10-19 10:42 | disposition home or self-care (01) ==
PROVIDERS: PCP Family Medicine; Visit Provider Family Medicine
DX: R07.9 Chest pain, unspecified (principal); R79.89 Other specified abnormal findings of blood chemistry; M79.89 Other specified soft tissue disorders; J18.9 Pneumonia, unspecified organism; Z86.718 Personal history of other venous thrombosis and embolism
CPT/HCPCS: 71275; 93970; Q9967

== ENCOUNTER 2023-01-09 07:40 | Outpatient (CLI) | payer OTHER, BC, MEDICAID, SELFPAY ==
[2023-01-09 09:58] LABS: Urine Creatinine 124 mg/dL (28-217)
[2023-01-09 10:03] LABS: Total Volume Urine 1300 ml
[2023-01-17 10:25] LABS: Free Cortisol Urine 17.2 mcg/24 h (4.0-50.0); Total Urine 1300 mL; Urine Creatinine 1.56 g/24 h (0.50-2.15)
== END 2023-01-09 07:41 | disposition home or self-care (01) ==
LOC: LAB 07:44
PROVIDERS: PCP Family Medicine; Visit Provider Internal Medicine
DX: E03.9 Hypothyroidism, unspecified (principal); R63.5 Abnormal weight gain
CPT/HCPCS: 82530; 82570

== ENCOUNTER → 2023-01-13 12:02 | Outpatient (BNVA) | payer OTHER, BC, MEDICAID, SELFPAY | PROVIDERS: PCP Family Medicine; Visit Provider Internal Medicine | DX: E03.9 Hypothyroidism, unspecified (principal) | CPT/HCPCS: 36415; 84439; 84443 ==

== ENCOUNTER 2023-10-31 16:32 | Outpatient (CLI) | payer OTHER, SELFPAY ==
[2023-10-31 17:36] LABS: Basophils # 0.1 10^3/uL (0.0-0.1); Basophils % 0.4 %; Eosinophils # 0.2 10^3/uL (0.0-0.8); Eosinophils % 1.3 %; Lymphocytes # 3.9 10^3/uL (0.8-4.8); Lymphocytes % 28.4 %; Mean Corpuscular HGB Conc 33.1 g/dL (30-55); Mean Corpuscular Hemoglobin 27.2 pg (27-33); Mean Corpuscular Volume 82.2 fl (85-98); Mean Platelet Volume 10.4 fL (7.4-10.4); Monocytes # 0.8 10^3/uL (0.2-0.9); Monocytes % 5.6 %; Neutrophils # 8.63 10^3/uL (1.8-7.7); Neutrophils % 63.6 %; Nucleated Red Blood Cells % 0 %; Platelet Count 335 10^3/cmm (157-399); Red Blood Count 5.11 10^6/uL (3.85-5.65); Red Cell Distribution Width 13.1 % (12.1-15.1); White Blood Count 13.55 10^3/uL (3.29-11.43)
[2023-10-31 17:46] LABS: Erythrocyte Sedimentation Rate 38 mm/hr (0-15)
[2023-10-31 18:04] LABS: C Reactive Protein 15.8 mg/L (0.0-4.9)
== END 2023-10-31 16:33 | disposition home or self-care (01) ==
LOC: LAB 16:37
PROVIDERS: PCP Family Medicine; Visit Provider Clinical Nurse Specialist Adult Health
DX: M54.2 Cervicalgia (principal)
CPT/HCPCS: 36415; 85025; 85651; 86140

== ENCOUNTER → 2024-01-12 12:36 | Outpatient (BNVA) | payer OTHER, SELFPAY | PROVIDERS: PCP Family Medicine; Visit Provider Family Medicine | DX: E03.1 Congenital hypothyroidism without goiter (principal); J06.9 Acute upper respiratory infection, unspecified; F32.9 Major depressive disorder, single episode, unspecified; F41.1 Generalized anxiety disorder; R13.10 Dysphagia, unspecified | CPT/HCPCS: 87880 ==

== ENCOUNTER → 2024-02-19 12:26 | Outpatient (BNVA) | payer OTHER, SELFPAY | PROVIDERS: PCP Family Medicine; Visit Provider Registered Nurse Neonatal Intensive Care | DX: R39.9 Unspecified symptoms and signs involving the genitourinary system (principal) | CPT/HCPCS: 81000; 87491; 87591 ==

== ENCOUNTER → 2024-09-05 10:18 | Outpatient (BNVA) | payer OTHER, SELFPAY | PROVIDERS: PCP Family Medicine; Visit Provider Family Medicine | DX: R07.9 Chest pain, unspecified (principal); E11.9 Type 2 diabetes mellitus without complications; E55.9 Vitamin D deficiency, unspecified; E03.9 Hypothyroidism, unspecified; Z51.81 Encounter for therapeutic drug level monitoring | CPT/HCPCS: 80053; 82306; 83036; 84439; 84443; 85025; 85379 ==

== ENCOUNTER → 2024-09-27 10:13 | Outpatient (BNVA) | payer OTHER, SELFPAY | PROVIDERS: PCP Family Medicine; Visit Provider Family Medicine | DX: R74.01 Elevation of levels of liver transaminase levels (principal); Z51.81 Encounter for therapeutic drug level monitoring | CPT/HCPCS: 80053 ==

== ENCOUNTER → 2024-11-15 17:00 | Outpatient (BNVA) | payer OTHER, SELFPAY | PROVIDERS: PCP Family Medicine | DX: J02.9 Acute pharyngitis, unspecified (principal) | CPT/HCPCS: 87880 ==

== ENCOUNTER 2024-12-31 13:58 | Outpatient (CLI) | payer OTHER, SELFPAY ==
--- NOTE | 2024-12-31 14:15 | CT_ITS ---
WS: [id number] CT ABDOMEN WITH CONTRAST HISTORY: Abdominal pain - LUQ Contiguous single phase 5 mm axial imaging performed to the abdomen. Oral contrast has been provided. Coronal and sagittal reformats are submitted. All CT scans at [facility] use at least one of these dose optimization techniques: automated exposure control; mA and/or kV adjustment per patient size (includes targeted exams where dose is matched to clinical indication); or iterative reconstruction. IV CONTRAST: Omnipaque 350; 100 mL IV. Oral contrast: Yes. DLP: 858.32 mGy.cm COMPARISON: 06/24/2015 Lower thorax: Lung bases are clear. Heart is normal size. No hiatal hernia. Liver/biliary system: Normal size with no intrahepatic dilatation. Gallbladder: Status post cholecystectomy. Pancreas: Normal size pancreas and pancreatic duct. No adjacent inflammation. Spleen: Normal size spleen. No mass or infarct. Adrenal glands: Normal. Right kidney: Normal. Left kidney: Normal. Aorta: Normal. Venous stent in the LEFT iliac vein. The entire stent was not included. Lymphadenopathy: None. Free fluid: None. GI tract: As visualized within the abdomen unremarkable. Abdominal wall: Fat containing umbilical hernia. Visualized osseous structures: Unremarkable. CT/CT abdomen w con* [id number] IMPRESSION: 1. Prior cholecystectomy. 2. No LEFT upper quadrant abnormality identified. 3. LEFT iliac vein stent.
[2024-12-31] MEDS: iohexol 350 mg/mL 500 mL Btl (per mL) IV (14:38)
[2024-12-31] MEDS: iohexol 350 mg/mL 500 mL Btl (per mL) PO (14:38)
== END 2024-12-31 13:59 | disposition home or self-care (01) ==
PROVIDERS: PCP Family Medicine; Visit Provider Family Medicine
DX: R10.9 Unspecified abdominal pain (principal); Z90.49 Acquired absence of other specified parts of digestive tract; Z96.89 Presence of other specified functional implants; K42.9 Umbilical hernia without obstruction or gangrene
CPT/HCPCS: 74160

== ENCOUNTER 2025-05-14 07:23 | Outpatient (CLI) | payer OTHER, SELFPAY | END 2025-05-14 07:24 | disposition home or self-care (01) | LOC: LAB 07:23 | PROVIDERS: PCP Family Medicine; Visit Provider Surgery | DX: R19.7 Diarrhea, unspecified (principal); R10.9 Unspecified abdominal pain | CPT/HCPCS: 83630; 83993; 87177; 87209 ==